=== PATIENT | female | born 1995 | race Two or more races ===

== ENCOUNTER 2016-11-08 20:17 | Emergency (ER) | payer SELFPAY ==
[2016-11-08 20:20] VITALS: BP 114/58
--- NOTE | 2016-11-08 20:50 | PHYS DOC ---
Past Medical History Past Medical History: No Pertinent History Past Surgical History: Tonsillectomy, Other Additional Past Surgical Histo: tubes in ears Alcohol Use: None Drug Use: Marijuana Adult General Chief Complaint Chief Complaint: BREAST PAIN/INJURY [facility] HPI Patient is a 20 year old female presents emergency Department today with complaint of pain and swelling to her left breast been ongoing and progressive over the past 2 months. Patient states that she's also been experiencing some intermittent nipple discharge. Patient states that there is a family history of breast and cervical cancer both maternal and paternal he. Patient states that she is a smoker. She denies fevers or chills. She states that she has lost a small amount of weight over the last month or so. Review of Systems Review of Systems Constitutional: Denies fever or chills [] Eyes: Denies change in visual acuity, redness, or eye pain [] HENT: Denies nasal congestion or sore throat [] Respiratory: Denies cough or shortness of breath [] Cardiovascular: No additional information not addressed in HPI [] GI: Denies abdominal pain, nausea, vomiting, bloody stools or diarrhea [] : Denies dysuria or hematuria [] Musculoskeletal: Denies back pain or joint pain [] Integument: Denies rash or skin lesions [] Neurologic: Denies headache, focal weakness or sensory changes [] Endocrine: Denies polyuria or polydipsia [] Allergies Allergies Allergies Coded Allergies Type Severity Reaction Last Updated Verified No Known Drug Allergies 10/12/13 No Physical Exam Physical Exam Constitutional: Well developed, well nourished, no acute distress, non-toxic appearance. [] HENT: Normocephalic, atraumatic, bilateral external ears normal, oropharynx moist, no oral exudates, nose normal. [] Eyes: PERRLA, EOMI, conjunctiva normal, no discharge. [] Neck: Normal range of motion, no tenderness, supple, no stridor. [] Cardiovascular:Heart rate regular rhythm, no murmur [] Lungs & Thorax: Bilateral breath sounds clear to auscultation [is without any erythema, cording orange or other skin abnormalities. Breast appeared to be somewhat symmetric. There is a somewhat firm, slightly immobile, irregular mass in patient's left breast. There is no active nipple discharge at this time. There are some enlarged in the anterior and medial chain of patient's left axilla. Abdomen: Bowel sounds normal, soft, no tenderness, no masses, no pulsatile masses. [] Skin: Warm, dry, no erythema, no rash. [] Back: No tenderness, no CVA tenderness. [] Extremities: No tenderness, no cyanosis, no clubbing, ROM intact, no edema. [] Neurologic: Alert and oriented X 3, normal motor function, normal sensory function, no focal deficits noted. [] Psychologic: Affect normal, judgement normal, mood normal. [] Current Patient Data Vital Signs Vital Signs Date Time Temp Pulse Resp B/P (MAP) Pulse Ox O2 Delivery O2 Flow Rate FiO2 11/08/16 20:20 98.4 72 16 99 Room Air 98.4 EKG EKG [] Radiology/Procedures Radiology/Procedures [] Course & Med Decision Making Course & Med Decision Making Patient waited patiently for over 2-1/2 hours. I was informed that the ultrasound was read and interpreted. However, they report did not cross over and is not accessible at this time. Advised patient to contact medical records on Thursday to get a copy of her test results and also will provide her phone numbers for [facility] for follow-up care. Dragon Disclaimer Dragon Disclaimer This electronic medical record was generated, in whole or in part, using a voice recognition dictation system. Departure Departure Impression: Primary Impression: Breast pain, left Disposition: 01 HOME, SELF-CARE Condition: GOOD Referrals: NON,STAFF (PCP) Patient Instructions: Breast Self-Exam, [id number], Breast Tenderness Additional Instructions: 1. Review the discharge instructions provided for self-care and reasons to return the emergency department. 2. Call [phone] Thursday. This is medical records. Be sure to discuss with them that you need a copy of your records from the visit here today. 3. You can choose to follow-up with either [facility] [phone] [facility] at [phone]. 4. Take the medication as prescribed. Scripts Hydrocodone/Apap 5-325 (NORCO 5-325 TABLET) 1 Each Tablet 1 TAB PO PRN Q6HRS Y for PAIN, #10 TAB 0 Refills Prov: DIANE SMITH 11/08/16 DIANE SMITH November 08, 2016 20:50
[2016-11-08] MEDS ORDERED: HYDR-971 PO (23:08)
--- NOTE | 2016-11-08 23:41 | RAD ---
PROCEDURE Left breast ultrasound. HISTORY 20-year-old female. Left breast mass felt by patient x2 months. Left breast pain and white cloudy discharge for a couple of days last week. TECHNIQUE Real-time ultrasound imaging of the left breast is performed. COMPARISON None. FINDINGS In the upper outer left breast there is dense fibroglandular tissue. A mass or architectural distortion are not identified. There may also be mild ductal ectasia in this region. IMPRESSION Upper outer left breast ultrasound does not demonstrate mass or architectural distortion. Recommend clinical followup. BI-RADS category 2, benign findings. Electronically signed by: Guero Hidalgo MD (November 08, 2016 23:40:51)
== END 2016-11-08 23:14 | disposition home or self-care (01) ==
LOC: ER 20:17
DX: N64.4 Mastodynia (principal); N63 Unspecified lump in breast; N64.52 Nipple discharge; F12.10 Cannabis abuse, uncomplicated
CPT/HCPCS: 76641; 81025; 99284-25